=== PATIENT | male | born 1970 | race Caucasian/White ===

== ENCOUNTER 2017-06-09 22:20 | Emergency (ER) | payer MEDICARE, OTHER ==
[~2017-06-09] VITALS: Ht 175.3 cm; Wt 84.0 kg
[2017-06-09] MEDS ORDERED: FLUO20CA19 PO (22:46)
[2017-06-10 00:18] VITALS: BP 137/86
--- NOTE | 2017-06-10 08:44 | ECGEPIP ---
Stationary ECG Study [facility] - ED Test Date: 2017-06-09 Pat Name: RAYSA MCKINNEY Department: Room: - Gender: M Director Of People: lynn : 1970 Requested By: LALO Kumar PA-C Order Number: [id number] Reading MD: Armando Pina Measurements Intervals [place] Rate: 86 P: 56 LA: 120 QRS: 69 QRSD: 101 T: 52 QT: 339 QTc: 408 Interpretive Statements SINUS RHYTHM POSSIBLE PRIOR INFERIOR INFARCT NO PRIORS Electronically Signed On 06-10-2017 8:15:52 EDT by Armando Pina
[2017-09-10] MEDS ORDERED: CIPR-249 PO (18:57)
[2017-09-10] MEDS ORDERED: HYDR-3713 PO (18:57)
[2017-09-10] MEDS ORDERED: ZOFR4TAB3 PO (18:57)
[2017-09-10] MEDS ORDERED: FLAG500T PO (18:57)
== END 2017-06-10 00:28 | disposition home or self-care (01) ==
LOC: M ED 22:20
DX: R42 Dizziness and giddiness (principal); R03.0 Elevated blood-pressure reading, without diagnosis of hypertension; F17.210 Nicotine dependence, cigarettes, uncomplicated; Z79.899 Other long term (current) drug therapy

== ENCOUNTER → 2017-06-14 | Outpatient (CLI) | payer MEDICARE ==
[~2017-06-14] MED LIST: CIPR-249 PO; FLAG500T PO; FLUO20CA19 PO; HYDR-3713 PO; ZOFR4TAB3 PO
--- NOTE | 2017-06-15 17:56 | REP ---
REASON: Weight loss. PRIOR EXAM: Frontal view obtained as part of an abdominal series of 12/01/2015. FINDINGS: The superior mediastinal structures are midline. The cardiac silhouette is unremarkable in size, shape, and position. The diaphragmatic surfaces of the lungs are regular, and the costophrenic angles are clear. The pulmonary weiss are clear. The imaged osseous structures are intact. If intrathoracic adenopathy is of clinical concern then contrast enhanced CT would be appropriate. IMPRESSION: There is no acute cardiopulmonary disease. Signed by Macario Shaw DO 06/16/2017 10:42 A
== END ==
LOC: M LRY 13:31
PROVIDERS: ATTEND Family Medicine
DX: R63.4 Abnormal weight loss (principal)
CPT/HCPCS: 71020; 80053; 84439; 84443; 85027; G0463

== ENCOUNTER → 2017-06-14 | Outpatient (REF) | payer MEDICARE ==
[2017-06-14 18:42] LABS: MEAN CORPUSCULAR VOLUME 97.3 fl (80.0-96.0); RED CELL DISTRIBUTION WIDTH 12.5 % (11.5-14.5); WHITE BLOOD COUNT 11.3 K/mm3 (4.0-10.0)
[2017-06-14 19:06] LABS: ALBUMIN 4.1 GM/DL (3.2-5.2); ALBUMIN/GLOBULIN RATIO 1.37 (1.00-1.93); ALKALINE PHOSPHATASE 56 U/L (45-117); ALT/SGPT 24 U/L (12-78); ANION GAP 11 MEQ/L (8-16); AST/SGOT 14 U/L (15-37); BILIRUBIN,TOTAL 0.5 MG/DL (0.2-1.0); BLOOD UREA NITROGEN 18 MG/DL (7-18); CALCIUM LEVEL 9.3 MG/DL (8.5-10.1); CARBON DIOXIDE LEVEL 29 MEQ/L (21-32); CHLORIDE LEVEL 102 MEQ/L (98-107); CREATININE FOR GFR 1.17 MG/DL (0.70-1.30); FREE T4 1.05 NG/DL (0.76-1.46); GLOMERULAR FILTRATION RATE > 60.0 (>60); GLUCOSE, FASTING 101 MG/DL (70-105); POTASSIUM SERUM 4.4 MEQ/L (3.5-5.1); SODIUM LEVEL 142 MEQ/L (136-145); TOTAL PROTEIN 7.1 GM/DL (6.4-8.2)
== END ==
LOC: M SFHCLERA 13:24
PROVIDERS: ATTEND Family Medicine
DX: R63.4 Abnormal weight loss (principal)

== ENCOUNTER 2017-12-09 09:07 | Day surgery (SDC) | payer MEDICARE ==
[2017-12-09] MEDS: LR 1,000 ML IV ×4 (09:58→10:00)
[2017-12-09] MEDS ORDERED: ONDANSETRON 4MG/2ML VIAL (J2405) As Ordered ×2 (11:03)
[2017-12-09] MEDS ORDERED: LIDOCAINE 2% INJ 100 MG/5 ML SDV (FOR ANES.) As Ordered ×2 (11:03)
[2017-12-09] MEDS ORDERED: PROPOFOL 200 MG/20 ML VIAL As Ordered ×2 (11:03)
[2017-12-09] MEDS ORDERED: ROCURONIUM BROMIDE 50 MG/5 ML VIAL As Ordered ×4 (11:03→13:33)
[2017-12-09] MEDS ORDERED: METOCLOPRAMIDE INJ 10MG/2ML VIAL (J2765) As Ordered ×2 (11:03)
[2017-12-09] MEDS ORDERED: MIDAZOLAM INJ 2 MG/2 ML VIAL (J2250) As Ordered ×2 (11:04)
[2017-12-09] MEDS ORDERED: fentaNYL 100 MCG/2 ML INJECTION (J3010) As Ordered ×4 (11:04→13:57)
[2017-12-09] MEDS ORDERED: KETOROLAC 60 MG/2 ML VIAL (J1885) As Ordered ×2 (12:12)
[2017-12-09] MEDS: BUPIVACAINE HCL 0.25% 10 ML VIAL As Ordered ×2 (12:20)
[2017-12-09] MEDS: LIDOCAINE W/EPINEPHRINE 1% 20ML VIAL As Ordered ×2 (12:20)
[2017-12-09] MEDS ORDERED: EPINEPHrine 1MG/10ML SYRINGE 1.5IN As Ordered ×2 (12:46)
[2017-12-09] MEDS ORDERED: ATROPINE SULF 0.4 MG/ML 1ML VIAL (J0461) As Ordered ×2 (12:46)
[2017-12-09] MEDS ORDERED: GLYCOPYRROLATE INJ 0.2 MG/ML 2 ML VIAL As Ordered ×2 (13:31)
[2017-12-09] MEDS ORDERED: NEOSTIGMINE 10 MG/10 ML VIAL (J2710) As Ordered ×2 (13:31)
[2017-12-09] MEDS: fentaNYL 100 MCG/2 ML INJECTION (J3010) IV ×8 (13:58→14:15)
[2017-12-09] MEDS ORDERED: LR 1,000 ML IV ×4 (14:15)
[2017-12-09] MEDS ORDERED: METOCLOPRAMIDE INJ 10MG/2ML VIAL (J2765) IV ×2 (14:15)
[2017-12-09] MEDS ORDERED: ONDANSETRON 4MG/2ML VIAL (J2405) IV ×4 (14:15)
[2017-12-09] MEDS ORDERED: MORPHINE 10 MG/ML 1ML VIAL IV ×2 (14:15)
[2017-12-09] MEDS ORDERED: MORPHINE 2 MG/ML 1ML SYRINGE IV ×2 (14:15)
[2017-12-09] MEDS ORDERED: PERCOCET 5MG/325MG TAB As Ordered ×2 (16:09)
[2017-12-09] MEDS: PERCOCET 5MG/325MG TAB PO ×2 (16:15)
[2017-12-09] MEDS ORDERED: KETOROLAC 30 MG/ML VIAL (J1885) IV ×2 (18:00)
== END 2017-12-09 17:15 | disposition home or self-care (01) ==
LOC: M SDC 09:07
DX: K40.90 Unilateral inguinal hernia, without obstruction or gangrene, not specified as recurrent (principal); H91.90 Unspecified hearing loss, unspecified ear; Z97.4 Presence of external hearing-aid; F32.9 Major depressive disorder, single episode, unspecified
CPT/HCPCS: 49650

== ENCOUNTER 2018-02-12 12:14 | Emergency (ER) | payer MEDICARE | END 2018-02-12 15:29 | disposition home or self-care (01) | LOC: M ED 12:14 | DX: M77.12 Lateral epicondylitis, left elbow (principal) | CPT/HCPCS: 99282 ==